=== PATIENT | male | born 2000 | race Caucasian/White ===

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

== ENCOUNTER 2019-01-17 19:39 | Emergency (ER) | payer BC ==
[~2019-01-17] VITALS: Ht 182.9 cm; Wt 65.9 kg
[~2019-01-17 19:39] MED LIST changes: +ATARAX 25MG25 MG/TAB PO; +PROZAC 10MG10 MG PO
[2019-01-17 19:44] VITALS: TEMP 98.4
[2019-01-17] MEDS ORDERED: LAMICTAL ODT50 MG TL (20:52)
[2019-01-17 21:05] LABS: COLLECTION METHOD CLEAN CATCH
[2019-01-17 21:10] LABS: BASO # 0.1 (0.0-0.2); BASO % 0.5 % (0.0-2.0); GRAN # 7.7 (1.4-6.5); GRAN % 74.6 % (42.2-75.2); HEMATOCRIT 45.7 % (36.0-47.0); LYMPH % 19.3 % (20.0-51.0); MEAN CELL VOLUME 89 fl (80.0-95.0); MEAN CORPUSCULAR HEMOGLOBIN 33 pg (26.0-32.0); MEAN CORPUSCULAR HGB CONC 37 g/dl (33.0-37.0); MEAN PLATELET VOLUME 9.9 fl (7.4-10.4); MONO # 0.6 (0.1-0.6); MONO % 5.4 % (1.7-9.3); PLATELET COUNT 247 K/mm3 (130-400); RED BLOOD COUNT 5.11 M/mm3 (4.20-5.60); REDCELL DISTRIBUTION WIDTH-CV 11.1 % (11.5-14.5)
[2019-01-17 21:16] LABS: PH 7 (5-8); SQUAMOUS EPITHELIAL None Seen /hpf; URINE APPEARANCE Clear; URINE BACTERIA None Seen /hpf; URINE BILIRUBIN Negative (NEGATIVE); URINE BLOOD Negative (NEGATIVE); URINE COLOR Straw; URINE GLUCOSE Negative (NEGATIVE); URINE KETONE Trace (NEGATIVE); URINE LEUKOCYTE ESTERASE Negative (NEGATIVE); URINE NITRATE Negative (NEGATIVE); URINE PROTEIN(semi-quant) Negative (NEGATIVE); URINE RBC 0-2 /hpf; URINE UROBILINOGEN Negative (NEGATIVE)
[2019-01-17 21:24] LABS: ALANINE AMINOTRANSFERASE 31 U/L (21-72); ALBUMIN 4.6 gm/dL (3.5-5.0); ALKALINE PHOSPHATASE 68 U/L (50-136); ANION GAP 8 mmol/L (7-16); AST,SGOT 29 U/L (15-37); BILIRUBIN,TOTAL 0.7 mg/dL (0.0-1.0); BLOOD UREA NITROGEN 12 mg/dL (9-20); CALCIUM 9.6 mg/dL (8.4-10.2); CARBON DIOXIDE 27 mmol/L (22-30); CHLORIDE 102 mmol/L (98-107); CREATININE, serum 0.84 mg/dL (0.66-1.25); GLUCOSE 84 mg/dL (74-106); LIPASE 80 U/L (23-300); POTASSIUM 3.7 mmol/L (3.4-5.0); SODIUM 137 mmol/L (137-145); TOTAL PROTEIN 7.5 gm/dL (6.4-8.2)
[2019-01-17 21:25] LABS: C-REACTIVE PROTEIN < 0.5 mg/dL (0.0-0.9)
[2019-01-17] MEDS ORDERED: ZOFRAN ODT4 MG PO (23:12)
[2019-01-17 23:34] VITALS: BP 135/77; PULSE 68
== END 2019-01-17 23:36 | disposition home or self-care (01) ==
LOC: COL.ER 19:39
PROVIDERS: Nurse Practitioner
DX: R11.2 Nausea with vomiting, unspecified (principal); R10.32 Left lower quadrant pain; G43.909 Migraine, unspecified, not intractable, without status migrainosus; F12.90 Cannabis use, unspecified, uncomplicated; F41.9 Anxiety disorder, unspecified; F31.9 Bipolar disorder, unspecified
CPT/HCPCS: J2405; J7030

== ENCOUNTER 2019-01-19 14:54 | Emergency (ER) | payer BC ==
[~2019-01-19] VITALS: Ht 182.9 cm; Wt 65.9 kg
[~2019-01-19 14:54] MED LIST changes: +LAMICTAL ODT50 MG TL
[2019-01-19 15:15] VITALS: TEMP 97.1
[2019-01-19 17:21] LABS: BASO % 0.3 % (0.0-2.0); GRAN % 87.8 % (42.2-75.2); HEMATOCRIT 47.5 % (36.0-47.0); HEMOGLOBIN 17.7 g/dl (12.5-16.1); LYMPH # 0.4 (1.2-3.4); LYMPH % 3.4 % (20.0-51.0); MEAN CELL VOLUME 90 fl (80.0-95.0); MEAN CORPUSCULAR HEMOGLOBIN 34 pg (26.0-32.0); MEAN CORPUSCULAR HGB CONC 37 g/dl (33.0-37.0); MEAN PLATELET VOLUME 10.2 fl (7.4-10.4); MONO # 0.9 (0.1-0.6); PLATELET COUNT 184 K/mm3 (130-400); RED BLOOD COUNT 5.27 M/mm3 (4.20-5.60); REDCELL DISTRIBUTION WIDTH-CV 11.4 % (11.5-14.5)
[2019-01-19 17:29] LABS: ALBUMIN 4.7 gm/dL (3.5-5.0); BILIRUBIN,TOTAL 0.7 mg/dL (0.0-1.0); C-REACTIVE PROTEIN 1.2 mg/dL (0.0-0.9); CALCIUM 9.9 mg/dL (8.4-10.2); CREATININE, serum 0.86 mg/dL (0.66-1.25); POTASSIUM 4.2 mmol/L (3.4-5.0); TOTAL PROTEIN 7.9 gm/dL (6.4-8.2)
[2019-01-19] MEDS ORDERED: PHENERGAN 25 TA25 MG PO (18:59)
[2019-01-19 19:10] LABS: COLLECTION METHOD CLEAN CATCH
[2019-01-19 19:18] LABS: MUCOUS Present /lpf; PH 6 (5-8); SQUAMOUS EPITHELIAL 0-2 /hpf; URINE APPEARANCE Clear; URINE BACTERIA None Seen /hpf; URINE BILIRUBIN Negative (NEGATIVE); URINE BLOOD Negative (NEGATIVE); URINE COLOR Yellow; URINE GLUCOSE Negative (NEGATIVE); URINE KETONE 1+ (NEGATIVE); URINE LEUKOCYTE ESTERASE Negative (NEGATIVE); URINE NITRATE Negative (NEGATIVE); URINE PROTEIN(semi-quant) Negative (NEGATIVE); URINE RBC 0-2 /hpf; URINE UROBILINOGEN Negative (NEGATIVE)
[2019-01-19 19:57] VITALS: BP 109/68; PULSE 84
== END 2019-01-19 19:57 | disposition home or self-care (01) ==
LOC: COL.ER 14:54
PROVIDERS: Physician Assistant
DX: R11.2 Nausea with vomiting, unspecified (principal); R19.7 Diarrhea, unspecified; R10.84 Generalized abdominal pain; F31.9 Bipolar disorder, unspecified
CPT/HCPCS: J1885; J2405; J7030; Q9967

== ENCOUNTER 2019-02-02 17:47 | Emergency (ER) | payer BC ==
[~2019-02-02] VITALS: Ht 182.9 cm; Wt 65.9 kg
[2019-02-02 17:51] VITALS: TEMP 97.1
[2019-02-02 18:47] LABS: BASO % 0.6 % (0.0-2.0); GRAN # 4.2 (1.4-6.5); GRAN % 63.2 % (42.2-75.2); HEMATOCRIT 45.5 % (36.0-47.0); HEMOGLOBIN 16.8 g/dl (12.5-16.1); LYMPH # 1.9 (1.2-3.4); LYMPH % 28.4 % (20.0-51.0); MEAN CELL VOLUME 90 fl (80.0-95.0); MEAN CORPUSCULAR HEMOGLOBIN 33 pg (26.0-32.0); MEAN CORPUSCULAR HGB CONC 37 g/dl (33.0-37.0); MONO # 0.5 (0.1-0.6); MONO % 7.3 % (1.7-9.3); PLATELET COUNT 228 K/mm3 (130-400); RED BLOOD COUNT 5.07 M/mm3 (4.20-5.60); REDCELL DISTRIBUTION WIDTH-CV 11.4 % (11.5-14.5)
[2019-02-02 18:58] LABS: ALBUMIN 4.3 gm/dL (3.5-5.0); BILIRUBIN,TOTAL 0.4 mg/dL (0.0-1.0); CALCIUM 9.8 mg/dL (8.4-10.2); CREATININE, serum 0.79 mg/dL (0.66-1.25); POTASSIUM 3.9 mmol/L (3.4-5.0)
[2019-02-02 19:00] LABS: PARTIAL THROMBOPLASTIN TIME 32.5 SECONDS (26.0-37.0)
[2019-02-02 19:07] LABS: PROTHROMBIN TIME 11.6 SECONDS (9.7-12.8)
[2019-02-02] MEDS ORDERED: PRIL40 PO (19:18)
[2019-02-02] MEDS ORDERED: CARAFATE 1GM1 G PO (19:18)
[2019-02-02] MEDS ORDERED: PHENERGAN 25 TA25 MG PO (19:58)
[2019-02-02 20:15] VITALS: BP 122/74; PULSE 75
== END 2019-02-02 20:15 | disposition home or self-care (01) ==
LOC: COL.ER 17:47
PROVIDERS: Emergency Medicine
DX: K92.0 Hematemesis (principal); R10.12 Left upper quadrant pain; F31.9 Bipolar disorder, unspecified; F12.10 Cannabis abuse, uncomplicated
CPT/HCPCS: C9113; J2550; J7030

== ENCOUNTER 2019-03-02 00:39 | Emergency (ER) | payer BC ==
[~2019-03-02] VITALS: Ht 182.9 cm; Wt 77.7 kg
[~2019-03-02 00:39] MED LIST changes: +CARAFATE 1GM1 G PO; +PRIL40 PO
[2019-03-02 00:42] VITALS: TEMP 99.3
[2019-03-02 01:15] LABS: BASO % 0.3 % (0.0-2.0); EOS % 0.2 % (0-4.0); GRAN # 9.9 (1.4-6.5); GRAN % 77.2 % (42.2-75.2); HEMATOCRIT 43.2 % (36.0-47.0); HEMOGLOBIN 16.2 g/dl (12.5-16.1); LYMPH # 2.1 (1.2-3.4); LYMPH % 16.2 % (20.0-51.0); MEAN CELL VOLUME 90 fl (80.0-95.0); MEAN CORPUSCULAR HEMOGLOBIN 34 pg (26.0-32.0); MEAN CORPUSCULAR HGB CONC 38 g/dl (33.0-37.0); MONO # 0.7 (0.1-0.6); MONO % 5.8 % (1.7-9.3); PLATELET COUNT 234 K/mm3 (130-400); RED BLOOD COUNT 4.81 M/mm3 (4.20-5.60); REDCELL DISTRIBUTION WIDTH-CV 11.9 % (11.5-14.5)
[2019-03-02 01:34] LABS: ALBUMIN 4.4 gm/dL (3.5-5.0); BILIRUBIN,TOTAL 0.8 mg/dL (0.0-1.0); CALCIUM 9.8 mg/dL (8.4-10.2); CREATININE, serum 0.83 (0.66-1.25); POTASSIUM 3.7 mmol/L (3.4-5.0); TOTAL PROTEIN 7.2 gm/dL (6.4-8.2)
[2019-03-02 03:03] VITALS: BP 123/83; PULSE 70
== END 2019-03-02 03:03 | disposition home or self-care (01) ==
LOC: COL.ER 00:39
PROVIDERS: Emergency Medicine
DX: K52.9 Noninfective gastroenteritis and colitis, unspecified (principal)
CPT/HCPCS: C9113; J2765; J3010; J7120

== ENCOUNTER → 2019-06-13 | Outpatient (CLI) | payer OTHER | LOC: COL.RAD 13:38 | DX: M25.552 Pain in left hip (principal) | CPT/HCPCS: A9585; Q9967 ==

== ENCOUNTER → 2019-06-21 | Outpatient (CLI) | payer OTHER | LOC: COL.RAD 07:23 | DX: M51.37 Other intervertebral disc degeneration, lumbosacral region (principal); M12.88 Other specific arthropathies, not elsewhere classified, other specified site ==

== ENCOUNTER 2019-07-22 14:18 | Emergency (ER) | payer BC ==
[~2019-07-22] VITALS: Ht 180.3 cm; Wt 72.3 kg
[2019-07-22 14:26] VITALS: TEMP 97.7
[2019-07-22 15:19] LABS: BASO % 0.4 % (0.0-2.0); EOS # 0.1 (0.0-0.7); EOS % 0.8 % (0-4.0); HEMATOCRIT 47.4 % (36.0-47.0); HEMOGLOBIN 17.5 g/dl (12.5-16.1); LYMPH # 1.9 (1.2-3.4); MEAN CELL VOLUME 92 fl (80.0-95.0); MEAN CORPUSCULAR HEMOGLOBIN 34 pg (26.0-32.0); MEAN CORPUSCULAR HGB CONC 37 g/dl (33.0-37.0); MEAN PLATELET VOLUME 9.9 fl (7.4-10.4); MONO # 0.6 (0.1-0.6); MONO % 6.4 % (1.7-9.3); PLATELET COUNT 258 K/mm3 (130-400); RED BLOOD COUNT 5.17 M/mm3 (4.20-5.60); REDCELL DISTRIBUTION WIDTH-CV 11.3 % (11.5-14.5)
[2019-07-22 15:25] LABS: ALBUMIN 4.7 gm/dL (3.5-5.0); BILIRUBIN,TOTAL 0.6 mg/dL (0.0-1.0); CALCIUM 9.7 mg/dL (8.4-10.2); CREATININE, serum 0.8 (0.66-1.25); POTASSIUM 4.1 mmol/L (3.4-5.0); TOTAL PROTEIN 7.7 gm/dL (6.4-8.2)
[2019-07-22 16:23] VITALS: BP 113/74; PULSE 63
== END 2019-07-22 16:23 | disposition home or self-care (01) ==
LOC: COL.ER 14:18
PROVIDERS: Emergency Medicine
DX: K92.2 Gastrointestinal hemorrhage, unspecified (principal); F12.90 Cannabis use, unspecified, uncomplicated; F31.9 Bipolar disorder, unspecified
CPT/HCPCS: J2405; J7030

== ENCOUNTER 2019-08-02 09:15 | Emergency (ER) | payer BC ==
[~2019-08-02] VITALS: Ht 180.3 cm; Wt 70.9 kg
[2019-08-02 09:23] VITALS: TEMP 99.3
[2019-08-02 09:53] LABS: COLLECTION METHOD CLEAN CATCH
[2019-08-02 10:12] LABS: TRICYCLIC ANTIDEPRESS URINE NEGATIVE
[2019-08-02 10:17] LABS: MUCOUS Present /lpf; PH 6 (5-8); SQUAMOUS EPITHELIAL None Seen /hpf; URINE APPEARANCE Clear; URINE BACTERIA None Seen /hpf; URINE BILIRUBIN Negative (NEGATIVE); URINE BLOOD Negative (NEGATIVE); URINE COLOR Yellow; URINE GLUCOSE Negative (NEGATIVE); URINE KETONE Trace (NEGATIVE); URINE LEUKOCYTE ESTERASE Negative (NEGATIVE); URINE NITRATE Negative (NEGATIVE); URINE PROTEIN(semi-quant) Negative (NEGATIVE); URINE RBC 0-2 /hpf; URINE UROBILINOGEN Negative (NEGATIVE)
[2019-08-02 10:21] LABS: BASO # 0.1 (0.0-0.2); BASO % 0.8 % (0.0-2.0); EOS # 0.1 (0.0-0.7); EOS % 0.8 % (0-4.0); GRAN # 4.4 (1.4-6.5); HEMATOCRIT 44.8 % (36.0-47.0); HEMOGLOBIN 16.5 g/dl (12.5-16.1); LYMPH # 1.5 (1.2-3.4); LYMPH % 23.3 % (20.0-51.0); MEAN CELL VOLUME 91 fl (80.0-95.0); MEAN CORPUSCULAR HEMOGLOBIN 33 pg (26.0-32.0); MEAN CORPUSCULAR HGB CONC 37 g/dl (33.0-37.0); MEAN PLATELET VOLUME 9.9 fl (7.4-10.4); MONO # 0.6 (0.1-0.6); MONO % 8.8 % (1.7-9.3); PLATELET COUNT 222 K/mm3 (130-400); RED BLOOD COUNT 4.94 M/mm3 (4.20-5.60); REDCELL DISTRIBUTION WIDTH-CV 11.3 % (11.5-14.5)
[2019-08-02 10:23] LABS: ALANINE AMINOTRANSFERASE 15 U/L (21-72); ALBUMIN 4.7 gm/dL (3.5-5.0); ALKALINE PHOSPHATASE 58 U/L (50-136); ANION GAP 11 mmol/L (7-16); AST,SGOT 24 U/L (15-37); BLOOD UREA NITROGEN 10 mg/dL (9-20); CALCIUM 9.8 mg/dL (8.4-10.2); CARBON DIOXIDE 26 mmol/L (22-30); CHLORIDE 103 mmol/L (98-107); GLUCOSE 87 mg/dL (74-106); SODIUM 140 mmol/L (137-145); TOTAL PROTEIN 7.6 gm/dL (6.4-8.2)
[2019-08-02 10:24] LABS: ACETAMINOPHEN < 10 ug/mL (10-30); ALCOHOL(ethanol),MEDICAL < 10 mg/dL; SALICYLATE < 1.0 mg/dL
[2019-08-02 12:15] VITALS: BP 135/80; PULSE 83
== END 2019-08-02 12:15 | disposition home or self-care (01) ==
LOC: COL.ER 09:15
PROVIDERS: Emergency Medicine
DX: R45.851 Suicidal ideations (principal); K27.9 Peptic ulcer, site unspecified, unspecified as acute or chronic, without hemorrhage or perforation; F31.9 Bipolar disorder, unspecified; Z91.5 Personal history of self-harm

== ENCOUNTER 2020-01-06 16:55 | Emergency (ER) | payer BC ==
[~2020-01-06] VITALS: Ht 180.3 cm; Wt 70.5 kg
[2020-01-06] MEDS ORDERED: AMBIEN 10MG10 MG PO (16:58)
[2020-01-06] MEDS ORDERED: NEURONTIN100 MG/CAP PO (16:58)
[2020-01-06] MEDS ORDERED: MINIPRESS 5M5 MG/CAP PO (16:58)
[2020-01-06] MEDS ORDERED: COGENTIN 1MG1 MG/TAB PO (16:58)
[2020-01-06] MEDS ORDERED: VRAYLAR3 MG PO (16:58)
[2020-01-06 16:59] VITALS: TEMP 98.1
[2020-01-06] MEDS ORDERED: INDERAL 20MG20 MG PO (16:59)
[2020-01-06 18:01] LABS: ALANINE AMINOTRANSFERASE 23 U/L (21-72); ALBUMIN 4.6 gm/dL (3.5-5.0); ALKALINE PHOSPHATASE 51 U/L (50-136); ANION GAP 11 mmol/L (7-16); AST,SGOT 19 U/L (15-37); BILIRUBIN,TOTAL 0.5 mg/dL (0.0-1.0); BLOOD UREA NITROGEN 13 mg/dL (9-20); CALCIUM 9.8 mg/dL (8.4-10.2); CARBON DIOXIDE 23 mmol/L (22-30); CHLORIDE 106 mmol/L (98-107); GLUCOSE 90 mg/dL (74-106); POTASSIUM 3.5 mmol/L (3.4-5.0); SALICYLATE 1.8 mg/dL; SODIUM 140 mmol/L (137-145); TOTAL PROTEIN 7.2 gm/dL (6.4-8.2)
[2020-01-06 18:11] LABS: ACETAMINOPHEN < 10 ug/mL (10-30); ALCOHOL(ethanol),MEDICAL < 10 mg/dL
[2020-01-06 18:35] LABS: TRICYCLIC ANTIDEPRESS URINE NEGATIVE
[2020-01-06 19:03] LABS: BASO # 0.1 (0.0-0.2); BASO % 0.5 % (0.0-2.0); EOS # 0.1 (0.0-0.7); EOS % 0.7 % (0-4.0); GRAN # 7.6 (1.4-6.5); GRAN % 68.9 % (42.2-75.2); HEMATOCRIT 42.3 % (42.0-52.0); LYMPH # 2.6 (1.2-3.4); LYMPH % 23.7 % (20.0-51.0); MEAN CELL VOLUME 90 fl (80.0-100.0); MEAN CORPUSCULAR HEMOGLOBIN 34 pg (27.0-31.0); MEAN CORPUSCULAR HGB CONC 38 g/dl (33.0-37.0); MEAN PLATELET VOLUME 10.3 fl (7.4-10.4); MONO # 0.6 (0.1-0.6); MONO % 5.8 % (1.7-9.3); PLATELET COUNT 228 K/mm3 (130-400); RED BLOOD COUNT 4.68 M/mm3 (4.20-5.60); REDCELL DISTRIBUTION WIDTH-CV 11.5 % (11.5-14.5)
[2020-01-06 20:54] VITALS: BP 141/70; PULSE 80
== END 2020-01-06 20:56 | disposition home or self-care (01) ==
LOC: COL.ER 16:55
PROVIDERS: Nurse Practitioner
DX: F32.9 Major depressive disorder, single episode, unspecified (principal); R07.9 Chest pain, unspecified; G43.909 Migraine, unspecified, not intractable, without status migrainosus; F41.9 Anxiety disorder, unspecified
CPT/HCPCS: J1885

== ENCOUNTER 2021-07-01 21:12 | Emergency (ER) | payer BC ==
[~2021-07-01] VITALS: Ht 182.9 cm; Wt 63.6 kg
[~2021-07-01 21:12] MED LIST changes: +AMBIEN 10MG10 MG PO; +COGENTIN 1MG1 MG/TAB PO; +INDERAL 20MG20 MG PO; +MINIPRESS 5M5 MG/CAP PO; +NEURONTIN100 MG/CAP PO; +VRAYLAR3 MG PO
[2021-07-01 21:17] VITALS: TEMP 97.2
[2021-07-01 21:54] VITALS: BP 116/69; PULSE 62
== END 2021-07-01 21:57 | disposition home or self-care (01) ==
LOC: COL.ER 21:12
DX: S00.211A Abrasion of right eyelid and periocular area, initial encounter (principal); F17.210 Nicotine dependence, cigarettes, uncomplicated; X58.XXXA Exposure to other specified factors, initial encounter; Y99.0 Civilian activity done for income or pay

== ENCOUNTER 2021-10-22 22:25 | Emergency (ER) | payer BC ==
[~2021-10-22] VITALS: Ht 182.9 cm; Wt 68.2 kg
[2021-10-22 23:15] VITALS: TEMP 98
[2021-10-22] MEDS ORDERED: BACTRIM DS 8001 TAB PO (23:55)
[2021-10-23 00:44] VITALS: BP 138/70; PULSE 70
== END 2021-10-23 00:44 | disposition home or self-care (01) ==
LOC: COL.ER 22:25
DX: L73.9 Follicular disorder, unspecified (principal); J45.909 Unspecified asthma, uncomplicated; F17.210 Nicotine dependence, cigarettes, uncomplicated

== ENCOUNTER 2024-08-07 08:03 | Emergency (ER) | payer SELFPAY ==
[~2024-08-07] VITALS: Ht 182.9 cm; Wt 68.2 kg
[~2024-08-07 08:03] MED LIST changes: +BACTRIM DS 8001 TAB PO
[2024-08-07 08:23] VITALS: TEMP 98
[2024-08-07] MEDS ORDERED: Ondansetron 4 MG/2 ML VIAL IV ONE (10:15)
[2024-08-07] MEDS ORDERED: NS 1,000 ML IV ONE (10:15)
[2024-08-07 10:48] LABS: COLLECTION METHOD CLEAN CATCH
[2024-08-07 10:52] LABS: BASO # 0.1 K/mm3 (0.0-0.2); BASO % 0.6 % (0.0-2.0); EOS # 0.1 K/mm3 (0.0-0.7); EOS % 0.7 % (0.0-4.0); GRAN % 72.9 % (42.2-75.2); HEMATOCRIT 46.2 % (42.0-52.0); HEMOGLOBIN 17.2 g/dl (13.5-18.0); LYMPH # 1.6 K/mm3 (1.2-3.4); LYMPH % 19.3 % (20.0-51.0); MEAN CELL VOLUME 93 fl (80.0-100.0); MEAN CORPUSCULAR HEMOGLOBIN 35 pg (27-31); MEAN CORPUSCULAR HGB CONC 37 g/dl (33.0-37.0); MEAN PLATELET VOLUME 9.9 fl (7.4-10.4); MONO # 0.5 K/mm3 (0.1-0.6); MONO % 6.4 % (1.7-9.3); PLATELET COUNT 252 K/mm3 (130-400); RED BLOOD COUNT 4.98 M/mm3 (4.20-5.60); REDCELL DISTRIBUTION WIDTH-CV 11.5 % (11.5-14.5)
[2024-08-07 10:53] LABS: URINE APPEARANCE CLEAR (CLEAR/HAZY); URINE BLOOD NEGATIVE (NEGATIVE); URINE COLOR YELLOW (YELLOW); URINE GLUCOSE NEGATIVE (NEGATIVE); URINE KETONE TRACE (NEGATIVE); URINE NITRATE NEGATIVE (NEGATIVE); URINE PROTEIN(semi-quant) NEGATIVE (NEGATIVE); URINE UROBILINOGEN 0.2 E.U/dL (0.2-1.0)
[2024-08-07 11:17] LABS: ALBUMIN 4.5 g/dL (3.5-5.0); BILIRUBIN,TOTAL 0.6 mg/dL (0.2-1.2); C-REACTIVE PROTEIN 0.24 mg/dL (0.00-0.50); CALCIUM 9.6 mg/dL (8.4-10.2); CREATININE, serum 0.86 mg/dL (0.72-1.25); POTASSIUM 4.3 mEq/L (3.5-4.5)
[2024-08-07 12:19] VITALS: BP 133/80; PULSE 68
== END 2024-08-07 12:22 | disposition home or self-care (01) ==
LOC: COL.ER 08:03
PROVIDERS: Nurse Practitioner
DX: R11.2 Nausea with vomiting, unspecified (principal)
CPT/HCPCS: J2405; J7030